=== PATIENT | male | born 1955 | race Caucasian/White ===

== ENCOUNTER 2019-06-20 07:26 | Outpatient (CLI) | payer OTHER | END 2019-06-20 08:39 | disposition home or self-care (01) | LOC: LAB 07:26 | DX: E88.89 Other specified metabolic disorders (principal); E56.9 Vitamin deficiency, unspecified; E61.8 Deficiency of other specified nutrient elements; E63.8 Other specified nutritional deficiencies; E61.2 Magnesium deficiency; E11.9 Type 2 diabetes mellitus without complications; R82.998 Other abnormal findings in urine; E55.9 Vitamin D deficiency, unspecified ==